=== PATIENT | male | born 1990 | race Caucasian/White ===

== ENCOUNTER 2016-11-09 15:35 | Emergency (ER) | payer BC ==
[2016-11-09 17:54] VITALS: BP 126/85
--- NOTE | 2016-11-09 18:18 | UC ---
Throat Pain/Nasal Nain HPI - HPI Summary HPI Summary: patient is coming off having an illness, however, today he has had alot of blood in his mucous. denies any other symptoms - History of Current Complaint Chief Complaint: UCGeneralIllness Stated Complaint: CONGESTION Time Seen by Provider: 11/09/16 17:48 Hx Obtained From: Patient Onset/Duration: Sudden Onset, Lasting Days Severity: Mild Pain Intensity: 1 Pain Scale Used: 0-10 Numeric Cough: Nonproductive Associated Signs & Symptoms: Positive: Nasal Discharge - Allergies/Home Medications Allergies/Adverse Reactions: Allergies Allergy/AdvReac Type Severity Reaction Status Date / Time Amoxicillin Allergy Rash Verified 11/19/15 15:31 Cefuroxime [From Ceftin] Allergy Rash Verified 11/19/15 15:31 Vancomycin Allergy Rash Verified 11/19/15 15:31 PMH/Surg Hx/FS Hx/Imm Hx Previously Healthy: Yes Respiratory History Of: Reports: Asthma - Surgical History Surgical History: Yes Surgery Procedure, Year, and Place: T&A. Right foot corrective surgery - Family History Known Family History: Positive: Cardiac Disease, Hypertension, Diabetes - Social History Alcohol Use: Rare Substance Use Type: None Smoking Status (MU): Former Smoker Have You Smoked in the Last Year: No Review of Systems Constitutional: Negative Skin: Negative Eyes: Negative ENT: Nasal Discharge Respiratory: Negative Cardiovascular: Negative Gastrointestinal: Negative Genitourinary: Negative Motor: Negative Neurovascular: Negative Musculoskeletal: Negative Neurological: Negative Psychological: Negative All Other Systems Reviewed And Are Negative: Yes Physical Exam Triage Information Reviewed: Yes Appearance: No Pain Distress, Well-Nourished, Ill-Appearing Vital Signs: Initial Vital Signs Temp 98.5 F 11/09/16 17:50 Pulse 81 11/09/16 17:50 Resp 16 11/09/16 17:50 BP 126/85 11/09/16 17:50 Pulse Ox 100 11/09/16 17:50 Vital Signs Reviewed: Yes Eye Exam: Normal Eyes: Positive: Conjunctiva Clear ENT: Positive: Nasal congestion - nares are erythemic, no sign of cuts or bloody discharge Dental Exam: Normal Neck exam: Normal Neck: Positive: Supple, Nontender, No Lymphadenopathy Respiratory Exam: Normal Respiratory: Positive: Chest non-tender, Normal breath sounds, No respiratory distress, Wheezing, Inspiration Cardiovascular Exam: Normal Cardiovascular: Positive: RRR, No Murmur, Pulses Normal Abdominal Exam: Normal Abdomen Description: Positive: Nontender, No Organomegaly, Soft Bowel Sounds: Positive: Present Musculoskeletal Exam: Normal Musculoskeletal: Positive: Strength Intact, ROM Intact, No Edema Neurological Exam: Normal Neurological: Positive: Alert, Muscle Tone Normal Psychological Exam: Normal Skin Exam: Normal Throat Pain/Nasal Course/Dx - Course Course Of Treatment: hx obtained, exam performed, albuterol prescribed, education on using nasal saline - Differential Dx/Diagnosis Differential Diagnosis/HQI/PQRI: Influenza, Laryngitis, Otitis Media, Pharyngitis, Sinusitis, Tonsillitis, URI Provider Diagnoses: nasal drainage. wheezing Discharge - Discharge Plan Condition: Stable Disposition: HOME Patient Education Materials: Wheezing (ED) Additional Instructions: I recommend that you get a humidifier and start using your nasal saline spray to moisturize the nares. you can place some vaseline in the nostrils as well.
== END 2016-11-09 18:41 | disposition home or self-care (01) ==
LOC: UCCORT 15:35
DX: R09.82 Postnasal drip (principal); R06.2 Wheezing; Z87.891 Personal history of nicotine dependence; Z88.1 Allergy status to other antibiotic agents
CPT/HCPCS: 99212; G0463

== ENCOUNTER 2017-06-04 20:24 | Emergency (ER) | payer BC ==
[2017-06-04 20:48] VITALS: BP 126/74
--- NOTE | 2017-06-04 21:57 | UC ---
Respiratory Complaint HPI - HPI Summary HPI Summary: 3 DAYS OF FATIGUE, MALAISE, SINUS PRESSURE, NON PRODUCTIVE COUGH AND PAIN IN HIS SIDES WITH DEEP INSPIRATION. NO FEVER AT HOME. GF HAS PNEUMONIA. - History of Current Complaint Chief Complaint: UCRespiratory Stated Complaint: SINUS/COUGH/SORE THROAT Time Seen by Provider: 06/04/17 21:48 Hx Obtained From: Patient Onset/Duration: Gradual Onset, Lasting Days, Still Present Timing: Constant Severity Initially: Moderate Severity Currently: Moderate Pain Intensity: 0 Pain Scale Used: 0-10 Numeric Character: Cough: Nonproductive Aggravating Factors: Nothing Alleviating Factors: Nothing Associated Signs And Symptoms: Positive: Pleuritic Chest Pain, URI, Nasal Congestion, Sinus Discomfort. Negative: Dyspnea, Fever, Chills, Wheezing - Allergies/Home Medications Allergies/Adverse Reactions: Allergies Allergy/AdvReac Type Severity Reaction Status Date / Time Bee Venom Allergy Severe Anaphylatic Verified 06/04/17 20:40 Shock Amoxicillin Allergy Rash Verified 11/19/15 15:31 Cefuroxime [From Ceftin] Allergy Rash Verified 11/19/15 15:31 Vancomycin Allergy Rash Verified 11/19/15 15:31 Home Medications: Home Medications Loratadine [Claritin 10 MG CAP] 10 mg PO DAILY 06/04/17 [History Confirmed 06/04] PMH/Surg Hx/FS Hx/Imm Hx Respiratory History: Asthma - Surgical History Surgical History: Yes Surgery Procedure, Year, and Place: T&A. Right foot corrective surgery - Family History Known Family History: Positive: Cardiac Disease, Hypertension, Diabetes - Social History Alcohol Use: Rare Substance Use Type: None Smoking Status (MU): Former Smoker Have You Smoked in the Last Year: No - Immunization History Most Recent Influenza Vaccination: NOT IN 2017 Review of Systems Constitutional: Fatigue ENT: Nasal Discharge Respiratory: Cough Cardiovascular: Negative Musculoskeletal: Other: - SIDE PAIN All Other Systems Reviewed And Are Negative: Yes Physical Exam Triage Information Reviewed: Yes Appearance: Well-Appearing, No Pain Distress, Well-Nourished Vital Signs: Initial Vital Signs Temp 99.5 F 06/04/17 20:42 Pulse 97 06/04/17 20:42 Resp 20 06/04/17 20:42 BP 126/74 06/04/17 20:42 Pulse Ox 99 06/04/17 20:42 Vital Signs Reviewed: Yes Eyes: Positive: Conjunctiva Clear ENT: Positive: Hearing grossly normal, Pharynx normal, TMs normal Neck: Positive: Supple Respiratory Exam: Normal Cardiovascular Exam: Normal Abdomen Description: Positive: Soft Musculoskeletal: Positive: Other: - NOT TENDER OVER RIB CAGE Neurological: Positive: Alert Psychological: Positive: Age Appropriate Behavior Skin: Negative: rashes UC Diagnostic Evaluation - Laboratory O2 Sat by Pulse Oximetry: 99 - Radiology Xray Interpretation: No Acute Changes - CHEST XRAY Radiology Interpretation Completed By: Radiologist Respiratory Course/Dx - Differential Dx/Diagnosis Provider Diagnoses: ACUTE URI Discharge - Discharge Plan Condition: Stable Disposition: HOME Patient Education Materials: Upper Respiratory Infection (ED) Referrals: No Primary Care Phys,NOPCP [Primary Care Provider] - Additional Instructions: CHEST XRAY UNREMARKABLE TODAY. LIKELY VIRAL UPPER RESPIRATORY INFECTION AND WILL RESOLVE WITH TIME. FOLLOW-UP HERE IF YOU ARE NOT IMPROVING EXPECTED OVER THE NEXT 1-2 WEEKS.
--- NOTE | 2017-06-04 22:07 | RAD ---
INDICATION: Several days cough. Shortness of breath. History of asthma. COMPARISON: No relevant prior exams available [place] [facility] [place]. TECHNIQUE: Dual energy PA and routine lateral views of the chest were obtained. REPORT: Clear lungs and pleural spaces. Negative for pneumothorax. The heart, pulmonary vasculature, and mediastinal contours are unremarkable. Unremarkable osseous structures and soft tissue contours. IMPRESSION: No evidence for acute intrathoracic disease.
== END 2017-06-04 22:22 | disposition home or self-care (01) ==
LOC: UCCORT 20:24
DX: J06.9 Acute upper respiratory infection, unspecified (principal); J45.909 Unspecified asthma, uncomplicated; Z87.891 Personal history of nicotine dependence
CPT/HCPCS: 71020; 99211; G0463

== ENCOUNTER 2018-02-14 12:02 | Emergency (ER) | payer BC ==
[2018-02-14 12:23] VITALS: BP 129/79
--- NOTE | 2018-02-14 12:29 | UC ---
Neck Pain HPI - HPI Summary HPI Summary: 27 y/o male presents to the urgent care c/o right side of neck acute pain s/p holding phone with head and shoulder about 1130 today. Pain 9/10 with movement radiating to his RT shoulder. Pt states he does heavy lifting at work and yesterday he help lift a mower w/ his RT arm. Pt has not taking anything to alleviate symptoms. Pt denies any Hx of trauma, or injury to his neck. Pt denies numbness or tingling over his arms, SOB, chest pain, abdominal pain, N/V/ D,. Pt has been healthy lately, but has been under a lot of stress. - History of Current Complaint Hx Obtained From: Patient Onset/Duration Of Injury/Symptoms: Hours - 1 hrs ago Mechanism Of Injury: No Known Trauma Timing: Constant Onset/Duration: Sudden Onset, Lasting Hours - 1 hr Severity: Severe Pain Intensity: 9 Pain Scale Used: 0-10 Numeric Location: Discrete At: - RT side of neck, Radiates To: - RT shoulder Character: Sharp, Stiff, Spasmotic Aggravating Factors: Movement Alleviating Factors: Position - rest Associated Signs & Symptoms: Positive: Nuchal Rigity. Negative: Swelling, Redness, Bruising, Fever, Headache, Paresthesia - Risk Factors Meningitis Risk Factors: Negative <Lianet Gutierrez - Last Filed: 02/14/18 13:43> <Stephanie Wilson - Last Filed: 02/14/18 14:21> - History of Current Complaint Chief Complaint: UCGeneralIllness Stated Complaint: RIGHT NECK PAIN Time Seen by Provider: 02/14/18 12:27 - Allergies/Home Medications Allergies/Adverse Reactions: Allergies Allergy/AdvReac Type Severity Reaction Status Date / Time amoxicillin Allergy Rash Verified 02/14/18 12:26 bee venom protein (honey bee) Allergy Anaphylatic Verified 02/14/18 12:26 Shock cefuroxime Allergy Rash Verified 02/14/18 12:26 vancomycin Allergy Rash Verified 02/14/18 12:26 PMH/Surg Hx/FS Hx/Imm Hx Previously Healthy: Yes Respiratory History: Asthma - Surgical History Surgical History: Yes Surgery Procedure, Year, and Place: T&A. Right foot corrective surgery - Family History Known Family History: Positive: Cardiac Disease, Hypertension, Diabetes - Social History Occupation: Employed Full-time Lives: With Family Alcohol Use: Weekly Alcohol Amount: 1-2/week Substance Use Type: None Smoking Status (MU): Former Smoker Have You Smoked in the Last Year: No - Immunization History Most Recent Influenza Vaccination: NOT IN 2017 <Lianet Gutierrez - Last Filed: 02/14/18 13:43> Review Of Systems Constitutional: Positive: Negative Skin: Positive: Negative Eyes: Positive: Negative ENT: Positive: Negative Respiratory: Positive: Negative Cardiovascular: Positive: Negative Gastrointestinal: Positive: Negative Genitourinary: Positive: Negative Musculoskeletal: Positive: Decreased ROM - neck, Other: - acute neck pain Neurological: Positive: Negative Psychological: Positive: Negative All Other Systems Reviewed And Are Negative: Yes <EvelynjaLianet medellin - Last Filed: 02/14/18 13:43> Physical Exam - Summary Physical Exam Summary: Vital signs:reviewed General: Patient is a well developed male without any distress that is laying comfortably in the examining table w/o any apparent distress. Skin: [place], warm, dry HEAD AND FACE: No signs of trauma. EYES: PERRLA, EOMI x 2. EARS: Hearing grossly intact. MOUTH: Oropharynx within normal limits. NECK: Supple, trachea is midline, no cervical lymphadenopathy, no JVD, no carotid bruit, no c-spine tenderness, neck with decrease ROM on flexion and Rt lateral bending due to pain. soft tissue and muscle tenderness over at the base of RT side of neck at the trapezious and paraspinal muscle tenderness and spams at the level C6-C7, . No meningeal signs, no Kernig's or brudzinskis signs. Decrease ROM on bending forward and Rt lateral bending due to pain. CHEST: Symmetric, no tenderness at palpation LUNGS: CTA bilaterally, no rales, rhonchi or wheezing CVS: RRR, no murmur, rub, or gallop ABDOMEN: soft and Nontender without masses, no guarding or rebound. Bowel sounds are active. No Hepato-splenomegaly. No signs of inguinal hernias. BACK: Patient walked into the urgent care room with symmetric ambulation, No signs of limping, antalgic, able to bear weight. No signs of trauma, No masses palpated., no swelling or ecchymosis observed, No CVAT, no flank ecchymosis . No sacroiliac notch tenderness, No saddle anesthesia.FROM: flexion/ extension/ lateral bending and rotation, note if limited or causes pain Straight Leg Raise: negative.Patellar reflexes: brisk, symmetric Muscle strength lower extremities. Dorsiflexion/ plantar flexion of ankles. Heel/ toe walk Lower extremities: Femoral, popliteal, posterior tibial, and dorsalis pedis pulses with in normal, Neurological: WNL Psychological: WNL Skin: dry and warm Triage Information Reviewed: Yes Vital Signs: Initial Vital Signs Temp 98.0 F 02/14/18 12:18 Pulse 76 02/14/18 12:18 Resp 16 02/14/18 12:18 BP 129/79 02/14/18 12:18 Pulse Ox 100 02/14/18 12:18 <Lianet Gutierrez - Last Filed: 02/14/18 13:43> Vital Signs: Initial Vital Signs Temp 98.0 F 02/14/18 12:18 Pulse 76 02/14/18 12:18 Resp 16 02/14/18 12:18 BP 129/79 02/14/18 12:18 Pulse Ox 100 02/14/18 12:18 <Stephanie Wilson - Last Filed: 02/14/18 14:21> Neck Pain Course/Dx - Course Course Of Treatment: 27 y/o male presents to the urgent care c/o right side of neck acute pain s/p holding phone with head and shoulder about 1130 today. Pain 9/10 with movement radiating to his RT shoulder. Pt states he does heavy lifting at work and yesterday he help lift a mower w/ his RT arm. Pt has not taking anything to alleviate symptoms. Pt denies any Hx of trauma, or injury to his neck. Pt denies numbness or tingling over his arms, SOB, chest pain, abdominal pain, N/V/D,. Pt has been healthy lately, but has been under a lot of stress.Hx obtained. Pt's neck is Supple, trachea is midline, no cervical lymphadenopathy, no JVD, no carotid bruit, no c-spine tenderness, neck with decrease ROM on flexion and Rt lateral bending due to pain. soft tissue and muscle tenderness over at the base of RT side of neck at the trapezious and paraspinal muscle tenderness and spams at the level C6-C7, . No meningeal signs , no Kernig's or brudzinskis signs. Pt is able to ambulate, Pt had a gradual onset of neck pain, no specific midline cervical spine tenderness. Cervical X- ray series order: Impression:No evidence of fracture or subluxation. Pt w/ probably neck spasm. Pt given Ibuprofen PO at the clinic by the nurse, Pt tolerated well medication and pain decrease. Rx Ibuprofen PO,and flexeril PO. Pt strongly advised to f/u w/ DR Maldonado in 1 week if symptoms do not improve or worsen. Patient understands and agrees w/ plan of care. Patient is able to ambulate freely. All questions were answered at patient satisfaction. Pt left clinic hemodynamically stable, A&OX3. - Differential Dx/Diagnosis Differential Dx/HQI/PQRI: Cervical Fracture, Sprain, Strain, Torticollis Provider Diagnoses: 1- Acute neck pain. 2- Neck spasm <Lianet Gutierrez - Last Filed: 02/14/18 13:43> Discharge - Sign-Out/Discharge Documenting (check all that apply): Discharge/Admit/Transfer - D/C home - Billing Disposition and Condition Condition: STABLE Disposition: HOME <Lianet Gutierrez - Last Filed: 02/14/18 13:43> - Billing Disposition and Condition Condition: STABLE Disposition: HOME <Stephanie Wilson - Last Filed: 02/14/18 14:21> - Discharge Plan Condition: Stable Disposition: HOME Prescriptions: Cyclobenzaprine TAB* [Flexeril 10 MG TAB*] 10 mg PO TID PRN #21 tab PRN Reason: Spasms - Neck Ibuprofen TAB* [Motrin TAB* 800 MG] 800 mg PO Q6H PRN #20 tab PRN Reason: Pain Patient Education Materials: Muscle Spasm (ED), Acute Neck Pain (ED) Forms: *Work Release Referrals: No Primary Care Phys,NOPCP [Primary Care Provider] - [facility] [Outside] - 1 Week Additional Instructions: 1- Please take Ibuprofen PO as directed after meals for pain. 2- Take Flexeril PO as directed for muscle spasm. Please do not drive while taking the medication. 3- Avoid strenuous exercise of heavy lifting. 4- Please follow up with Orthopedic Dr Maldonado or your PCP in 1 week if not improvement of symptoms, for further management. Attestation Statement User Type: Provider - I was available for consult. This patient was seen by the [facility]. The patient was not presented to, seen by, or examined by me. -Shyanne <Stephanie Wilson - Last Filed: 02/14/18 14:21>
[2018-02-14] MEDS ORDERED: Ibuprofen TAB* 400 MG PO ONE (12:43)
--- NOTE | 2018-02-14 13:26 | RAD ---
HISTORY: Acute ankle pain COMPARISONS: None VIEWS: 5, Frontal, lateral, open-mouth odontoid, and bilateral oblique views of the cervical spine. FINDINGS: The cervical spine is visualized from the skull base through T1. ALIGNMENT: The alignment is normal. VERTEBRAL BODIES: The odontoid process is intact. The atlantoaxial intervals are symmetric. JOINTS: There is no subluxation or dislocation. The facet joints are unremarkable. There is no osseous neural foraminal narrowing on the oblique views. INTERVERTEBRAL DISCS: The intervertebral disc heights are normal. SOFT TISSUE: The prevertebral soft tissues are normal. OTHER: The skull base is normal. The lung apices are clear. IMPRESSION: UNREMARKABLE RADIOGRAPHS OF THE CERVICAL SPINE.
== END 2018-02-14 13:45 | disposition home or self-care (01) ==
LOC: UCCORT 12:02
DX: M54.2 Cervicalgia (principal); M62.838 Other muscle spasm; Z88.3 Allergy status to other anti-infective agents; Z87.891 Personal history of nicotine dependence
CPT/HCPCS: 72050; 99212; A9270-GY; G0463

== ENCOUNTER 2018-11-19 20:33 | Emergency (ER) | payer BC ==
[2018-11-19 21:25] VITALS: BP 151/69
[2018-11-19] MEDS ORDERED: Sulfamethox/Trimethoprim DS 800/160* TAB PO ONE (21:47)
--- NOTE | 2018-11-19 21:47 | UC ---
General HPI - HPI Summary HPI Summary: 28-year-old male presents with 2 separate complaints. His first complaint is for 5 day history of burning at the end of urination. Denies fever, chills, abdominal pain, nausea, vomiting, back or flank pain, frequency, urgency, hematuria, or penile drainage. States he is in a long-term monogamous relationship with a female partner and denies any risk factors for STIs. He does report that he accidentally caused a small scratch near the the meatus prior to the start of the symptoms. His second complaint is for 3 days history of sore throat. States his sedating other was treated for strep throat 2 weeks ago. Denies dysphagia, nasal congestion, postnasal drip, ear pain, cough, chest pain, or shortness of breath. - History of Current Complaint Chief Complaint: UCGeneralIllness Stated Complaint: STREP EXPOSURE, SORE THROAT, URINARY Time Seen by Provider: 11/19/18 21:30 Pain Intensity: 2 - Allergy/Home Medications Allergies/Adverse Reactions: Allergies Allergy/AdvReac Type Severity Reaction Status Date / Time amoxicillin Allergy Rash Verified 11/19/18 21:18 bee venom protein (honey bee) Allergy Anaphylatic Verified 11/19/18 21:18 Shock cefuroxime Allergy Rash Verified 11/19/18 21:18 vancomycin Allergy Rash Verified 11/19/18 21:18 PMH/Surg Hx/FS Hx/Imm Hx Previously Healthy: Yes - Denies significant PMH - Surgical History Surgical History: Yes Surgery Procedure, Year, and Place: T&A. Right foot corrective surgery - Family History Known Family History: Positive: Cardiac Disease, Hypertension, Diabetes - Social History Occupation: Employed Full-time Lives: With Family Alcohol Use: Occasionally Alcohol Amount: 1-2/week Substance Use Type: None Smoking Status (MU): Former Smoker Length of Time of Smoking/Using Tobacco: 10 yrs Have You Smoked in the Last Year: No When Did the Patient Quit Smoking/Using Tobacco: 2010 - Immunization History Most Recent Influenza Vaccination: NOT IN 2017 Review of Systems All Other Systems Reviewed And Are Negative: Yes Constitutional: Negative: Fever, Chills Skin: Negative: Rash Eyes: Negative: Drainage, Eye Redness ENT: Positive: Sore Throat. Negative: Ear Ache, Nasal Discharge, Sinus Congestion, Sinus Pain/Tenderness Respiratory: Negative: Shortness Of Breath, Cough Cardiovascular: Negative: Palpitations, Chest Pain Gastrointestinal: Negative: Abdominal Pain, Vomiting, Diarrhea, Nausea Genitourinary: Positive: Dysuria. Negative: Hematuria, Frequency, Urgency, Vaginal/Penile Discharge Musculoskeletal: Positive: Negative Neurological: Positive: Negative Is Patient Immunocompromised?: No Physical Exam - Summary Physical Exam Summary: GENERAL APPEARANCE: Well developed, well nourished, alert and cooperative, and appears to be in no acute distress. EYES: Conjunctiva clear. No drainage. Vision is grossly intact. EARS: External auditory canals and tympanic membranes clear, hearing grossly intact. NOSE: No nasal discharge. THROAT: Mild pharyngeal erythema. Surgically absent tonsils. Uvula midline. Oral cavity normal. Teeth and gingiva in good general condition. NECK: Neck supple, non-tender without lymphadenopathy. CARDIAC: Normal S1 and S2. No S3, S4 or murmurs. Rhythm is regular. There is no peripheral edema, cyanosis or pallor. Extremities are warm and well perfused. Capillary refill is less than 2 seconds. Peripheral pulses intact. LUNGS: Clear to auscultation without rales, rhonchi, wheezing or diminished breath sounds. ABDOMEN: Positive bowel sounds. Soft, nondistended, nontender. No guarding or rebound. No masses or hepatosplenomegally. No CVA tenderness. MUSKULOSKELETAL: ROM intact to all extremities. No joint erythema or tenderness. Normal muscular development. Normal gait. SKIN: Skin normal color, texture and turgor with no lesions or eruptions. Triage Information Reviewed: Yes Vital Signs: Initial Vital Signs Temp 97.8 F 11/19/18 21: Pulse 86 11/19/18 21: Resp 16 11/19/18 21:19 BP 151/69 11/19/18 21:19 Pulse Ox 100 11/19/18 21:19 Vital Signs Reviewed: Yes Course/Dx - Course Course Of Treatment: 28-year-old male presents with 2 separate complaints. His first complaint is for 5 day history of burning at the end of urination. Denies fever, chills, abdominal pain, nausea, vomiting, back or flank pain, frequency, urgency, hematuria, or penile drainage. States he is in a long-term monogamous relationship with a female partner and denies any risk factors for STIs. He does report that he accidentally caused a small scratch near the the meatus prior to the start of the symptoms. His second complaint is for 3 days history of sore throat. States his sedating other was treated for strep throat 2 weeks ago. Denies dysphagia, nasal congestion, postnasal drip, ear pain, cough, chest pain, or shortness of breath. Afebrile. Hypertensive but otherwise vital signs stable. Exam reveals dental male in no acute distress with mild pharyngeal erythema, surgically absent tonsils, no cervical lymphadenopathy, and otherwise unremarkable exam. His [id number] urinalysis showed 1+ leukocyte esterase and otherwise normal. Urine culture is pending. Rapid strep test was negative. I will treat him for a UTI with Bactrim DS 1 tab twice a day 5 days for the UTI and I am recommending symptomatic treatment for a viral pharyngitis. He is to follow-up with his primary care provider in 5 -7 days if symptoms do not improve. Anticipatory guidance and warning symptoms were reviewed with the patient. Verbalizes understanding and agrees with plan of care. - Differential Dx - Multi-Symptom Differential Diagnoses: Urinary Tract Infection, Other - pharyngitis, mononucleosis, urethritis - Diagnoses Provider Diagnosis: UTI (urinary tract infection), Pharyngitis, Elevated blood pressure reading Discharge - Sign-Out/Discharge Documenting (check all that apply): Patient Departure All imaging exams completed and their final reports reviewed: No Studies - Discharge Plan Condition: Stable Disposition: HOME Prescriptions: Sulfamethox/Trimethoprim DS* [Bactrim DS 800/160 TAB*] 1 tab PO BID #9 tab Patient Education Materials: Nonspecific Urethritis in Men (ED), Pharyngitis ( ED) Referrals: Nuno Yu NP [Primary Care Provider] - 5 Days (Follow up in 5-7 days if no improvement in symptoms.) Additional Instructions: Your urine test in the clinic today is suggestive of a urinary tract infection. We will start you on an antibiotic to treat for the infection. We will also send a urine culture today to see what bacteria grow out and make sure the antibiotic you were prescribed is appropriate to treat the infection. It will take 48-72 hours to get these results. We will contact you if there is any change in your treatment plan. Start Bactrim DS 1 tab twice a day for 5 days for the urinary tract infection. Your rapid strep test in the clinic today was negative. Your sore throat is likely from a viral infection. Viral infections do not respond to antibiotics and are limited to the treatment of symptoms. Viral infections typically run their course in 7-10 days. Drink plenty of fluids to avoid dehydration especially if you are running any fever. Use salt water gargles several times a day. Take over the counter acetaminophen (Tylenol) or ibuprofen (Advil, Motrin) according to directions as needed for pain or fever. You may also use Chloraseptic spray or Cepacol lonzenges according to directions which contain a numbing medication and can provide some temporary relief from your sore throat. Return here or follow up with your primary care provider in 5-7 days if symptoms persist. Your blood pressure was elevated in the clinic today. It is recommended that you follow up with your primary care provider within 4 weeks to have this rechecked. Seek immediate medical attention in the emergency room if you have fever greater than 100.5 F despite taking acetaminophen or ibuprofen, are unable to swallow or develop drooling, are unable to open your mouth fully, are unable to eat or drink, have pain that is not relieved with over the counter pain medication, develop severe abdominal pain, persistent vomiting, are unable to urinate, have blood in your urine, or have any difficulty breathing. - Billing Disposition and Condition Condition: STABLE Disposition: Home
--- NOTE | 2018-11-22 07:03 | UC ---
- Progress Note Progress Note: Notify pt No UTI may stop antibiotic recheck if symptomatic Course/Dx - Diagnoses Provider Diagnoses: UTI (urinary tract infection), Pharyngitis, Elevated blood pressure reading Discharge - Sign-Out/Discharge Documenting (check all that apply): Post-Discharge Follow Up All imaging exams completed and their final reports reviewed: No Studies - Discharge Plan Condition: Stable Disposition: HOME Prescriptions: Sulfamethox/Trimethoprim DS* [Bactrim DS 800/160 TAB*] 1 tab PO BID #9 tab Patient Education Materials: Nonspecific Urethritis in Men (ED), Pharyngitis ( ED) Referrals: Nuno Yu NP [Primary Care Provider] - 5 Days (Follow up in 5-7 days if no improvement in symptoms.) Additional Instructions: Your urine test in the clinic today is suggestive of a urinary tract infection. We will start you on an antibiotic to treat for the infection. We will also send a urine culture today to see what bacteria grow out and make sure the antibiotic you were prescribed is appropriate to treat the infection. It will take 48-72 hours to get these results. We will contact you if there is any change in your treatment plan. Start Bactrim DS 1 tab twice a day for 5 days for the urinary tract infection. Your rapid strep test in the clinic today was negative. Your sore throat is likely from a viral infection. Viral infections do not respond to antibiotics and are limited to the treatment of symptoms. Viral infections typically run their course in 7-10 days. Drink plenty of fluids to avoid dehydration especially if you are running any fever. Use salt water gargles several times a day. Take over the counter acetaminophen (Tylenol) or ibuprofen (Advil, Motrin) according to directions as needed for pain or fever. You may also use Chloraseptic spray or Cepacol lonzenges according to directions which contain a numbing medication and can provide some temporary relief from your sore throat. Return here or follow up with your primary care provider in 5-7 days if symptoms persist. Your blood pressure was elevated in the clinic today. It is recommended that you follow up with your primary care provider within 4 weeks to have this rechecked. Seek immediate medical attention in the emergency room if you have fever greater than 100.5 F despite taking acetaminophen or ibuprofen, are unable to swallow or develop drooling, are unable to open your mouth fully, are unable to eat or drink, have pain that is not relieved with over the counter pain medication, develop severe abdominal pain, persistent vomiting, are unable to urinate, have blood in your urine, or have any difficulty breathing. - Billing Disposition and Condition Condition: STABLE Disposition: Home
== END 2018-11-19 21:56 | disposition home or self-care (01) ==
LOC: UCCORT 20:33
DX: N39.0 Urinary tract infection, site not specified (principal); J06.9 Acute upper respiratory infection, unspecified; R03.0 Elevated blood-pressure reading, without diagnosis of hypertension; Z88.0 Allergy status to penicillin; Z88.1 Allergy status to other antibiotic agents; Z91.030 Bee allergy status; Z87.891 Personal history of nicotine dependence
CPT/HCPCS: 81003; 87086; 87651; 99212; A9270-GY; G0463